=== PATIENT | male | born 2000 | race Caucasian/White ===

== ENCOUNTER 2020-12-31 01:28 | Emergency (ER) | payer BC ==
[~2020-12-31] VITALS: Ht 172.7 cm; Wt 72.7 kg
[2020-12-31 01:36] VITALS: TEMP 98
[2020-12-31] MEDS ORDERED: MOTRIN 400400 MG/TAB PO (03:13)
[2020-12-31] MEDS ORDERED: NEOSPORIN1 OIN OP (03:14)
[2020-12-31 03:30] VITALS: BP 125/87; PULSE 95
== END 2020-12-31 03:30 | disposition home or self-care (01) ==
LOC: COL.ER 01:28
DX: S01.111A Laceration without foreign body of right eyelid and periocular area, initial encounter (principal); S01.21XA Laceration without foreign body of nose, initial encounter; W13.8XXA Fall from, out of or through other building or structure, initial encounter